=== PATIENT | female | born 1970 | race Caucasian/White ===

== ENCOUNTER 2024-10-07 12:13 | Emergency (ER) | payer SELFPAY ==
[~2024-10-07] VITALS: Ht 167.6 cm; Wt 86.4 kg
--- NOTE | 2024-10-07 12:19 | Physician Documentation ---
History of Present Illness ~ Stated Complaint: MED CLEARANCE Time Seen by MD: 12:18 [facility] This is a 54-year-old female who was brought to the emergency department by she riff after she was complaining of right wrist pain when being handcuffed. On exam, the patient has no other complaints. Medication Reconciliation Allergies: Coded Allergies: No Known Allergies (Unverified , 10/07/24) Past Medical History Past Medical History: No Pertinent History Past Surgical History: no surgical history Drug Use: none Lives with: Family Lives In: Home Occupation: employed Review of Systems ROS As stated above in the HPI, otherwise all systems are reviewed and negative. Physical Exam Physical Exam General: Alert, no apparent distress. Neck: Full range of motion. Respiratory: Lungs clear, no respiratory distress. Chest: No accessory muscle use. Cardiovascular: Regular rate and rhythm, no murmurs. Gastrointestinal: Soft, nontender, nondistended. Bowels sounds present. Extremities: Reduced/painful ROM right wrist with TTP medial aspect. CMS intact to fingers. Strong radial pulse. No obvious deformity. Psychiatric: Normal mood and affect. Skin: Normal color, warm and dry. No edema, no ecchymosis. Procedures Procedures Hematoma block accomplished as follows: Informed consent obtained, chlorhexidine utilized to cleanse the skin overlying the hematoma. 5 mL of 1% plain lidocaine was then injected, and reduction was attempted. Postreduction film did not show improvement. Sugar tong splint/envelope sling applied. CMS intact distally after splint placement. Progress Results/Orders Results/Orders Orders - SHANNAN SALMERON NP Wrist, Complete (3vw Min) (10/07/24 12:25) Ortho Orders (10/07/24 ) Wrist,Limited (Ap/Lat) (10/07/24 13:40) Completed Orders - SHANNAN SALMERON NP Wrist, Complete (3vw Min) (10/07/24 12:25) Hydrocodone/Apap 10/325 (Woodruff 10/325mg (10/07/24 12:55) Ondansetron Disint. Tablet (Zofran Odt T (10/07/24 12:55) Lidocaine 1% 30ml Vial (Xylocaine 1% Via (10/07/24 12:55) Wrist,Limited (Ap/Lat) (10/07/24 13:40) Medications Received in ER Medications (Trade) Dose Ordered Sig/Yesika Route PRN Reason Start Time Stop Time Status Last Admin Dose Admin (Woodruff 10/325mg tab) 1 tab ONCE ONCE PO 10/07/24 12:55 10/07/24 12:56 DC 10/07/24 13:29 1 TAB (Zofran ODT tablet) 4 mg ONCE ONCE PO 10/07/24 12:55 10/07/24 12:56 DC 10/07/24 13:29 4 MG Vital Signs 10/07/24 10/07/24 12:23 13:29 Temp 98.0 Pulse 107 Resp 16 16 B/P (MAP) 183/117 Pulse Ox 97 O2 Flow Rate 0 Medical Decision Making Differential Diagnosis 54-year-old female presented per the deputy sheriff bailiff after reporting pain and feeling a �pop� after being placed in coughs. On exam, she was found to be tender over the distal radius. X-ray showed displaced fracture. Attempts at reduction were made after a hematoma block. See procedure note for details. This was not suc cessful. environmental compliance specialist Dr. Garzon was consulted, agrees that patient may be discharged to custody and should see him within the next week to discuss surgical treatment. AMARIS Reese was involved in formulating plan of care during several points in the patient's stay in the ER. Departure Time of Disposition: 14:40 Disposition: 01 HOME / SELF CARE / HOMELESS Impression: Primary Impression: Fracture of right wrist Additional Impression: Medical clearance for incarceration Condition: Stable Discharge Instructions: Cast or Splint Care, Adult, Medical Screening Exam, Wrist Fracture Treated With Immobilization Additional Instructions: Needs followup appointment with ortho within week. Would recommend pain medication per preference of snf medical staff. leave splint in place. Elevate, ice. Return for any concerns prior to ortho followup. Patient is now medically cleared to [facility] custody. Referrals: NO PRIMARY CARE PROVIDER (PCP) SHASHI GRAYSON Jr., MD Education Educated: Patient Educated regarding: diagnosis, treatment, prognosis, need for follow up Signature Scribe Signature: no scribe Attestation: The note accurately reflects work and decisions made by me.Shannan Kruse NP 10/07/24 12:33 SHANNAN SALMERON NP October 07, 2024 12:19
[2024-10-07 12:23] VITALS: BP 183/117; PULSE 107; TEMP 98; O2SAT 97
--- NOTE | 2024-10-07 13:19 | RADIOLOGY REPORT ---
Indication: RIGHT WRIST PAIN Technique: 3 views of the right wrist Comparison: None FINDINGS/IMPRESSION: There is a comminuted and displaced fracture of the distal radial diaphysis with 6 mm cortical offset . Distal fracture fragment displaced towards the dorsal aspect of the right forearm There is surroun ding soft tissue edema / hematoma. Minimally displaced ulnar styloid fracture.
[2024-10-07 13:29] VITALS: RESP 16
[2024-10-07] MEDS: ondansetron 4mg rapidly disintigrating tab PO ONE (13:29)
[2024-10-07] MEDS: HYDROcodone/acetaminophen 10/325mg tab PO ONE (13:29)
[2024-10-07] MEDS: LIDOcaine 1% 30ml preserv. free vial IJ STA (13:29)
--- NOTE | 2024-10-07 16:05 | RADIOLOGY REPORT ---
CLINICAL INDICATION: after reduction, will call TECHNIQUE: AP and lateral views of the right wrist were performed. DI WRIST,LIMITED (AP/LAT) Comparison: Radiographs from earlier same day. FINDINGS/IMPRESSION: : 1. Spiral fracture of the right distal radial metaphysis and metaphyseal-diaphyseal junction re-ident ified, with greater displacement proximally. There has been interval placement of plaster cast materi al. 2. No fractures are identified about the carpal bones, metacarpal bones, or distal ulna.
== END 2024-10-07 15:17 | disposition home or self-care (01) ==
LOC: ER 12:13
DX: S62.101A Fracture of unspecified carpal bone, right wrist, initial encounter for closed fracture (principal); X58.XXXA Exposure to other specified factors, initial encounter; Y93.89 Activity, other specified; Y92.89 Other specified places as the place of occurrence of the external cause; Y99.8 Other external cause status
CPT/HCPCS: 25605; 73100; 73110; 99284; A4565; A6449